=== PATIENT | female | born 1935 | race American Indian/Alaskan Native ===

== ENCOUNTER 2019-09-13 10:29 | Outpatient (CLI) | payer MEDICARE | END 2019-09-13 10:30 | disposition home or self-care (01) | LOC: EEG 10:29 | PROVIDERS: ATTEND Internal Medicine | DX: R94.01 Abnormal electroencephalogram [EEG] (principal); F01.50 Vascular dementia, unspecified severity, without behavioral disturbance, psychotic disturbance, mood disturbance, and anxiety | CPT/HCPCS: 95819 ==